=== PATIENT | male | born 1965 | race Caucasian/White ===

== ENCOUNTER 2016-07-20 16:42 | Emergency (ER) | payer OTHER ==
[2016-07-20 17:10] VITALS: RESP 18
--- NOTE | 2016-07-20 17:57 | ED ---
General Adult HPI - General Chief complaint: Abdominal Pain Stated complaint: Hemorrhoid Time Seen by Provider: 07/20/16 17:45 Source: patient, family, RN notes reviewed Mode of arrival: ambulatory Limitations: no limitations - History of Present Illness Initial comments: Patient is a pleasant 51-year-old male presenting to the emergency department complaining of hemorrhoid. Onset was yesterday. Patient states he may have been straining a little bit. Patient has had persistent discomfort since that time. No bleeding noticed. No chronic history of hemorrhoid. Patient was seen at the urgent care prior to arrival and advised to come to the emergency department. - Related Data Home Medications Medication Instructions Recorded Confirmed No Known Home Medications [No 08/09/15 07/20/16 Known Home Medications] Allergies Allergy/AdvReac Type Severity Reaction Status Date / Time Penicillins AdvReac Unknown Verified 07/20/16 17:48 Childhood Review of Systems ROS Statement: Those systems with pertinent positive or pertinent negative responses have been documented in the HPI. ROS Other: All systems not noted in ROS Statement are negative. Constitutional: Denies: fever Eyes: Denies: eye pain ENT: Denies: ear pain Respiratory: Denies: cough Cardiovascular: Denies: chest pain Endocrine: Denies: fatigue Gastrointestinal: Denies: abdominal pain Genitourinary: Denies: dysuria Musculoskeletal: Denies: back pain Skin: Denies: rash Neurological: Denies: weakness Past Medical History Past Medical History: No Reported History History of Any Multi-Drug Resistant Organisms: None Reported Past Surgical History: No Surgical Hx Reported Additional Past Surgical History / Comment(s): shoulder Past Psychological History: No Psychological Hx Reported Smoking Status: Current every day smoker Past Alcohol Use History: None Reported, Daily, Occasional Past Drug Use History: None Reported General Exam Limitations: no limitations General appearance: alert, in no apparent distress Head exam: Present: atraumatic Respiratory exam: Present: normal lung sounds bilaterally Cardiovascular Exam: Present: regular rate, normal rhythm GI/Abdominal exam: Present: soft. Absent: tenderness Rectal exam: Present: hemorrhoids (Thrombosed hemorrhoid at the 9 o'clock position, 3 x 1 cm. Tenderness is present.) Extremities exam: Present: normal inspection Neurological exam: Present: alert Psychiatric exam: Present: normal affect, normal mood Skin exam: Absent: rash Course Vital Signs 07/20/16 17:08 Temperature 98.4 F Pulse Rate 66 Respiratory 18 Rate Blood Pressure 139/71 O2 Sat by Pulse 98 Oximetry Medical Decision Making - Medical Decision Making Case was discussed with referring physician from urgent care prior to arrival. Case was discussed with Dr. Gage who will come evaluate the patient and plans on observing for thrombectomy tomorrow. Disposition Clinical Impression: Thrombosed hemorrhoids Disposition: ADMITTED IP TO THIS HOSP Referrals: Peterson Weeks DO [Primary Care Provider] - 1-2 days
[2016-07-20] MEDS ORDERED: MORPHINE SULFATE 4 MG/ML SYRINGE IV STA (18:27)
[2016-07-20] MEDS ORDERED: SODIUM CHLORIDE 0.9% 1,000 ML IV STA (18:27)
[2016-07-20] MEDS ORDERED: MORPHINE SULFATE 4 MG/ML SYRINGE IV PRN (18:29)
[2016-07-20] MEDS ORDERED: NALOXONE 0.4 MG/ML 1 ML VIAL IV PRN (18:29)
[2016-07-20 18:44] LABS: Basophils # (A) 0.1 k/uL (0-0.2); Basophils % (A) 1 %; CH 32.1; Eosinophils # (A) 0.2 k/uL (0-0.7); Eosinophils % (A) 3 %; HCT 47.6 % (39.0-53.0); HDW 2.29; HGB 16.1 gm/dL (13.0-17.5); Luc # (Auto) 0.19; Luc % (Auto) 2; Lymphocytes # (A) 3.5 k/uL (1.0-4.8); Lymphocytes % (A) 41 %; MCH 31.1 pg (25.0-35.0); MCHC 33.8 g/dL (31.0-37.0); MCV 92.2 fL (80.0-100.0); Monocytes # (A) 0.6 k/uL (0-1.0); Monocytes % (A) 6 %; Neutrophils # (A) 4.1 k/uL (1.3-7.7); Neutrophils % (A) 47 %; RBC 5.16 m/uL (4.30-5.90); RDW 12.7 % (11.5-15.5); WBC 8.7 k/uL (3.8-10.6); WBC (Perox) 8.44
[2016-07-20 18:55] LABS: Partial Thromboplastin Time 23.7 sec (22.0-30.0); Prothrombin Time 10.5 sec (9.0-12.0)
[2016-07-20 18:58] LABS: ALT 33 U/L (21-72); AST 25 U/L (17-59); Alkaline Phosphatase 83 U/L (38-126); Anion Gap 13 mmol/L; Blood Urea Nitrogen 9 mg/dL (9-20); Calcium 9.5 mg/dL (8.4-10.2); Carbon Dioxide 24 mmol/L (22-30); Chloride 104 mmol/L (98-107); Glucose 93 mg/dL (74-99); Non-African American GFR(MDRD) >60 (>60 ml/min/1.73 sqM); Sodium 141 mmol/L (137-145); Total Bilirubin 0.9 mg/dL (0.2-1.3)
--- NOTE | 2016-07-20 20:07 | ED ---
Medical Decision Making - Medical Decision Making Patient was seen by Dr. Gage and will follow-up in the morning for outpatient procedure. - Lab Data Result diagrams: 07/20/16 18:30 07/20/16 18:30 Lab Results 07/20/16 07/20/16 07/20/16 Range/Units 18:30 18:30 18:30 WBC 8.7 (3.8-10.6) k/uL RBC 5.16 (4.30-5.90) m/uL Hgb 16.1 (13.0-17.5) gm/dL Hct 47.6 (39.0-53.0) % MCV 92.2 (80.0-100.0) fL MCH 31.1 (25.0-35.0) pg MCHC 33.8 (31.0-37.0) g/dL RDW 12.7 (11.5-15.5) % Plt Count 195 (150-450) k/uL Neutrophils % 47 % Lymphocytes % 41 % Monocytes % 6 % Eosinophils % 3 % Basophils % 1 % Neutrophils # 4.1 (1.3-7.7) k/uL Lymphocytes # 3.5 (1.0-4.8) k/uL Monocytes # 0.6 (0-1.0) k/uL Eosinophils # 0.2 (0-0.7) k/uL Basophils # 0.1 (0-0.2) k/uL PT 10.5 (9.0-12.0) sec INR 1.0 (<1.1) APTT 23.7 (22.0-30.0) sec Sodium 141 (137-145) mmol/L Potassium 4.0 (3.5-5.1) mmol/L Chloride 104 (98-107) mmol/L Carbon Dioxide 24 (22-30) mmol/L Anion Gap 13 mmol/L BUN 9 (9-20) mg/dL Creatinine 0.88 (0.66-1.25) mg/dL Est GFR (MDRD) Af Amer >60 (>60 ml/min/1.73 sqM) Est GFR (MDRD) Non-Af >60 (>60 ml/min/1.73 sqM) Glucose 93 (74-99) mg/dL Calcium 9.5 (8.4-10.2) mg/dL Total Bilirubin 0.9 (0.2-1.3) mg/dL AST 25 (17-59) U/L ALT 33 (21-72) U/L Alkaline Phosphatase 83 (38-126) U/L Total Protein 8.0 (6.3-8.2) g/dL Albumin 4.5 (3.5-5.0) g/dL Disposition Clinical Impression: Thrombosed hemorrhoids Disposition: HOME SELF-CARE Condition: Stable Instructions: Hemorrhoids (ED) Additional Instructions: Please follow-up tomorrow with Dr. Parekh/Lefty as planned. Return for uncontrolled pain, redness, bleeding, worsening symptoms or other concerns. Nothing to eat after midnight. Referrals: Peterson Weeks DO [Primary Care Provider] - 1-2 days Noemi Gage MD [Emergency Provider] - 1-2 days
--- NOTE | 2016-07-20 20:17 | P.GSCN ---
History of Present Illness Consult date: 07/20/16 Reason for Consult: Thrombosed hemorrhoids History of present illness: Patient is a 51-year-old white male who states that approximately 2 days ago he noticed some perirectal swelling. He stated that this occurred after he had been using an Michelle progress and pushing down hard on it. The patient was seen in urgent care and told he had a thrombosed hemorrhoid in to be evaluated in the emergency room. The patient denies any fever or chills. The patient has no diarrhea or constipation. The patient has had some mild nausea. The patient has had a colonoscopy in the past and does not relate any problems related to this. Past surgical history: 1. Right shoulder surgery 2. Left finger surgery Past medical history: Negative Medications: Negative ALLERGIES: Penicillin as a child patient had hives Review of systems: HEENT negative Lungs: Negative Heart: Negative GI: As in history of present illness : Negative Social history: Smoking: Less than 1 pack per day for 3 years Alcohol: Week and stool Marijuana: Negative Review of Systems - Constitutional Reports as per HPI - Cardiovascular Reports as per HPI - Respiratory Reports as per HPI - Gastrointestinal Reports as per HPI - Genitourinary Reports as per HPI Past Medical History Past Medical History: No Reported History History of Any Multi-Drug Resistant Organisms: None Reported Past Surgical History: No Surgical Hx Reported Additional Past Surgical History / Comment(s): shoulder Past Psychological History: No Psychological Hx Reported Smoking Status: Current every day smoker Past Alcohol Use History: None Reported, Daily, Occasional Past Drug Use History: None Reported Medications and Allergies Home Medications Medication Instructions Recorded Confirmed Type No Known Home Medications [No 08/09/15 07/20/16 History Known Home Medications] Allergies Allergy/AdvReac Type Severity Reaction Status Date / Time Penicillins AdvReac Unknown Verified 07/20/16 17:48 Childhood Surgical - Exam Vital Signs Temp Pulse Resp BP Pulse Ox 98.4 F 66 18 139/71 98 07/20/16 17:08 07/20/16 17:08 07/20/16 17:08 07/20/16 17:08 07/20/16 17:08 - General well developed, well nourished, no distress - Eyes normal ocular movement - ENT normal pinna, normal nares, no hearing loss - Neck no masses, trachea midline, no lymphadectomy, no venous distension - Respiratory normal expansion, normal respiratory effort, clear to auscultation - Cardiovascular Rhythm: regular - Abdomen Abdomen: soft, bowel sounds - Rectum Patient has a left lateral thrombosed hemorrhoid present, this is approximately 3 cm in size Results - Labs 07/20/16 18:30 07/20/16 18:30 Diabetes panel 07/20/16 Range/Units 18:30 Sodium 141 (137-145) mmol/L Potassium 4.0 (3.5-5.1) mmol/L Chloride 104 (98-107) mmol/L Carbon Dioxide 24 (22-30) mmol/L BUN 9 (9-20) mg/dL Creatinine 0.88 (0.66-1.25) mg/dL Glucose 93 (74-99) mg/dL Calcium 9.5 (8.4-10.2) mg/dL AST 25 (17-59) U/L ALT 33 (21-72) U/L Alkaline Phosphatase 83 (38-126) U/L Total Protein 8.0 (6.3-8.2) g/dL Albumin 4.5 (3.5-5.0) g/dL Calcium panel 07/20/16 Range/Units 18:30 Calcium 9.5 (8.4-10.2) mg/dL Albumin 4.5 (3.5-5.0) g/dL Pituitary panel 07/20/16 Range/Units 18:30 Sodium 141 (137-145) mmol/L Potassium 4.0 (3.5-5.1) mmol/L Chloride 104 (98-107) mmol/L Carbon Dioxide 24 (22-30) mmol/L BUN 9 (9-20) mg/dL Creatinine 0.88 (0.66-1.25) mg/dL Glucose 93 (74-99) mg/dL Calcium 9.5 (8.4-10.2) mg/dL Adrenal panel 07/20/16 Range/Units 18:30 Sodium 141 (137-145) mmol/L Potassium 4.0 (3.5-5.1) mmol/L Chloride 104 (98-107) mmol/L Carbon Dioxide 24 (22-30) mmol/L BUN 9 (9-20) mg/dL Creatinine 0.88 (0.66-1.25) mg/dL Glucose 93 (74-99) mg/dL Calcium 9.5 (8.4-10.2) mg/dL Total Bilirubin 0.9 (0.2-1.3) mg/dL AST 25 (17-59) U/L ALT 33 (21-72) U/L Alkaline Phosphatase 83 (38-126) U/L Total Protein 8.0 (6.3-8.2) g/dL Albumin 4.5 (3.5-5.0) g/dL Assessment and Plan Plan: Impression/plan: 1. Thrombosed hemorrhoid 2. Surgical thrombectomy Plan: 1. The patient will remain nothing by mouth after midnight 2. Surgical thrombectomy tomorrow 3. If patient feels worse he will return to the emergency room
[2016-07-20 20:43] VITALS: BP 113/78; PULSE 52; TEMP 97.7
== END 2016-07-20 20:40 | disposition home or self-care (01) ==
LOC: EC 16:42 → UNDOADMOB 18:29 → 3SUR 18:29 → EC 20:40
DX: K64.9 Unspecified hemorrhoids (principal); Z88.0 Allergy status to penicillin; F17.200 Nicotine dependence, unspecified, uncomplicated
CPT/HCPCS: 36415; 80053; 85025; 85610; 85730; 99284

== ENCOUNTER 2018-03-06 09:34 | Emergency (ER) | payer OTHER ==
[2018-03-06 09:39] VITALS: RESP 18
[2018-03-06] MEDS ORDERED: PROPARACAINE 0.5% OPHTH DROPS 15 ML BTL BOTH EYES STA (09:43)
[2018-03-06] MEDS ORDERED: ERYTHROMYCIN 5 MG/GM OPHTH OINT 3.5 GM TUBE BOTH EYES STA (10:29)
--- NOTE | 2018-03-06 10:31 | ED ---
Eye Problem HPI - General Chief complaint: Eye Problems Stated complaint: Glass in EYE [facility] Time Seen by Provider: 03/06/18 10:01 Source: patient, RN notes reviewed, old records reviewed Mode of arrival: ambulatory Limitations: no limitations - History of Present Illness Initial comments: is a 52-year-old male present emergency department chief complaint of a piece of brass flying within the right eye. 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 Patient reports that he has no significant pain in the eye. He came right here to have the piece of metal removed from the eye. Patient states that he has had no watering of the eye. He denies any visual changes. He states that he does not wear glasses or contacts. - Related Data Previous Rx's Medication Instructions Recorded Erythromycin Ophth Oint [Romycin 1 applic RIGHT EYE QID #1 tube 03/06/18 Ophth Oint] Allergies Allergy/AdvReac Type Severity Reaction Status Date / Time Penicillins AdvReac Anaphylaxis Verified 03/06/18 10:07 Review of Systems ROS Statement: Those systems with pertinent positive or pertinent negative responses have been documented in the HPI. ROS Other: All systems not noted in ROS Statement are negative. Past Medical History Past Medical History: No Reported History History of Any Multi-Drug Resistant Organisms: None Reported Past Surgical History: No Surgical Hx Reported Additional Past Surgical History / Comment(s): shoulder Past Psychological History: No Psychological Hx Reported Smoking Status: Current every day smoker Past Alcohol Use History: Occasional Past Drug Use History: None Reported General Exam - General Exam Comments Initial Comments: Well-appearing 52-year-old male. Alert and oriented. No acute distress. Limitations: no limitations General appearance: alert, in no apparent distress Head exam: Present: atraumatic, normocephalic, normal inspection Eye exam: Absent: normal appearance (Patient had a small piece of metal on the right upper eyelash line. No evidence of retained foreign metal body within the actual conjunctiva.) ENT exam: Present: normal exam Neck exam: Present: normal inspection. Absent: tenderness, meningismus, lymphadenopathy Respiratory exam: Present: normal lung sounds bilaterally. Absent: respiratory distress, wheezes, rales, rhonchi, stridor Cardiovascular Exam: Present: regular rate, normal heart sounds. Absent: systolic murmur, diastolic murmur, rubs, gallop, clicks Extremities exam: Present: normal inspection, full ROM, normal capillary refill. Absent: tenderness, pedal edema, joint swelling, calf tenderness Neurological exam: Present: alert, oriented X3, CN II-XII intact Psychiatric exam: Present: normal affect, normal mood Skin exam: Present: warm, dry, intact, normal color. Absent: rash Course Vital Signs 03/06/18 09:35 Temperature 97.9 F Pulse Rate 55 L Respiratory 18 Rate Blood Pressure 116/68 O2 Sat by Pulse 100 Oximetry Medical Decision Making - Medical Decision Making Patient's 52-year-old male since restricted she complained of metal foreign body within the right eye. 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 At this time Patient has the piece of foreign body with on the actual eyelid. I removed this with a moistened swab. I did stain the eye will for seen and examined the eye under the Luna lamp. There is a small evidence of a corneal abrasion over the lateral aspect of the conjunctiva and canthus. Patient at this time. Erythromycin eye ointment. Given referral for oncologic symptoms persist. I discussed putting him in and every 4 hours the next few days. Patient understands treatment plan will comply. Return parameters were discussed. Disposition Clinical Impression: Corneal abrasion, Foreign body in eyeball, right Disposition: HOME SELF-CARE Condition: Good Additional Instructions: Apply the eye ointment every 4 hours for the next 3 days. Patient should follow -up with ophthalmology if symptoms persist. Return to emergency department if any alarming signs or symptoms occur. Prescriptions: Erythromycin Ophth Oint [Romycin Ophth Oint] 1 applic RIGHT EYE QID #1 tube Is patient prescribed a controlled substance at d/c from ED?: No Referrals: Andreas Mejía MD [Primary Care Provider] - 1-2 days Time of Disposition: 10:30
[2018-03-06 11:04] VITALS: BP 114/59; PULSE 64; TEMP 98.2
== END 2018-03-06 10:59 | disposition home or self-care (01) ==
LOC: EC 09:34
DX: T15.01XA Foreign body in cornea, right eye, initial encounter (principal); Z88.0 Allergy status to penicillin; Y92.69 Other specified industrial and construction area as the place of occurrence of the external cause; Y99.0 Civilian activity done for income or pay
CPT/HCPCS: 99283

== ENCOUNTER → 2019-05-28 | Outpatient (CLI) | payer OTHER ==
--- NOTE | 2019-05-28 14:50 | XR ---
EXAMINATION TYPE: XR orbit detect foreign body DATE OF EXAM: 05/28/2019 COMPARISON: NONE HISTORY: Pre-MRI clearance TECHNIQUE: 3 views of the orbits are submitted. FINDINGS: No radiopaque foreign bodies identified. Paranasal sinuses and osseous structures of the fa cial bones are grossly unremarkable. IMPRESSION: The patient is cleared for MRI.
== END | disposition home or self-care (01) ==
LOC: RADXRMAIN 14:24
PROVIDERS: ATTEND Radiology Radiation Oncology
DX: C61 Malignant neoplasm of prostate (principal); F17.210 Nicotine dependence, cigarettes, uncomplicated
CPT/HCPCS: 70030

== ENCOUNTER → 2019-05-29 | Outpatient (CLI) | payer OTHER ==
--- NOTE | 2019-06-04 13:35 | MR ---
EXAMINATION TYPE: MR Prostate wo/w con DATE OF EXAM: 05/29/2019 COMPARISON: None. IMAGE QUALITY: Good. INDICATION: Malignant neoplasm of prostate PSA: 4.7 ng/ml on March 02 Recent Biopsy and Date: April 11, 2019 Pathology Report (If Applicable): [place] score 3+4 = 7 right base TECHNIQUE: Examination was performed using a 3T MRI without an endorectal coil. Multiparametric imaging was perf ormed with T2 mutliplanar sequences, axial diffusion weighted imaging and dynamic contrast enhanced i maging, utilizing 7.5 mL intravenous Gadavist gadolinium contrast. FINDINGS: There is no clinically significant cancer identified. PROSTATE VOLUME: 3.8 cm SI x 4.1 cm AP x 4.8 cm LR Vol= 39.2 cc PSA DENSITY: 4.6944 ng/ml/cc Peripheral zone shows areas of indistinct hypointensity on ADC mapping. No areas of [id number]-sw-yluybtew hypointensity or increased signal on diffusion-weighted imaging. Transitional zone shows fairly oswald l appearance without areas of suspicious hypointensity and T2 weighted images. T1 axial images show s ome areas of postbiopsy hemorrhage left central mid zone axial image 19 for reference. Prostate capsule maintained. Seminal vesicles are within normal limits. No adjacent adenopathy. There is poor bladder distention with mild wall thickening and trabeculation up to 9 mm. Visualized osseous structures are intact. Visualized bowel shows no suspicious dilatation. No concern ing pelvic fluid collection is seen. IMPRESSION: Mildly enlarged prostate gland without definitive concerning lesion. A focus of clinically significant cancer is not identified. Highest Assessment Category: 2 MRI Stage: T1c N0 M0 based on review of pelvic images. False negative rates for MRI range from 5-20% depending on risk profile. Assessment Categories: 1 ? Very low (clinically significant cancer is highly unlikely to be present) 2 ? Low (clinically significant cancer is unlikely to be present) 3 ? Intermediate (the presence of clinically significant cancer is equivocal) 4 ? High (clinically significant cancer is likely to be present) 5 ? Very high (clinically significant cancer is highly likely to be present) Locations: PZ = peripheral zone; TZ = transition zone CZ=central zone; AFS = anterior fibromuscular stroma a=anterior half (i.e. PZa=anterior half of peripheral zone); pm= posterior medial (i.e PZpm) pl = postero-lateral (i.e. PZpl); p = posterior half (i.e. TZp) ; a = anterior half (i.e TZa or P Za) Other: N=no or no; E= equivocal; Y=yes EPE = extraprostatic extension NVB = neurovascular bundle NA = not applicable/not available
== END | disposition home or self-care (01) ==
LOC: RADMRIMAIN 05:52
PROVIDERS: ATTEND Radiology Radiation Oncology
DX: C61 Malignant neoplasm of prostate (principal)
CPT/HCPCS: 72197; A9585

== ENCOUNTER → 2019-06-04 | Outpatient (CLI) | payer OTHER | END | disposition home or self-care (01) | LOC: LABWHC1 15:02 | PROVIDERS: ATTEND Radiology Radiation Oncology | DX: C61 Malignant neoplasm of prostate (principal); F17.210 Nicotine dependence, cigarettes, uncomplicated | CPT/HCPCS: 36415; 84153 ==

== ENCOUNTER → 2019-06-14 | Outpatient (CLI) | payer OTHER ==
[2019-06-14 16:45] LABS: Basophils # (A) 0.1 k/uL (0-0.2); Basophils % (A) 1 %; Eosinophils # (A) 0.3 k/uL (0-0.7); Eosinophils % (A) 3 %; HCT 45.7 % (39.0-53.0); Lymphocytes # (A) 3.3 k/uL (1.0-4.8); Lymphocytes % (A) 37 %; MCH 31.4 pg (25.0-35.0); MCHC 32.9 g/dL (31.0-37.0); MCV 95.5 fL (80.0-100.0); Mean Platelet Volume 7.6; Monocytes # (A) 0.4 k/uL (0-1.0); Monocytes % (A) 5 %; Neutrophils # (A) 4.8 k/uL (1.3-7.7); Neutrophils % (A) 53 %; Platelet Count 252 k/uL (150-450); RBC 4.79 m/uL (4.30-5.90); RDW 12.8 % (11.5-15.5); WBC 9.1 k/uL (3.8-10.6)
[2019-06-14 16:54] LABS: African American GFR (CKD) >90 (>60 ml/min/1.73 sqM); Anion Gap 6 mmol/L; Blood Urea Nitrogen 17 mg/dL (9-20); Calcium 9.2 mg/dL (8.4-10.2); Carbon Dioxide 28 mmol/L (22-30); Chloride 105 mmol/L (98-107); Glucose 84 mg/dL (74-99); Non-African American GFR(CKD) 89 (>60 ml/min/1.73 sqM); Potassium 4.5 mmol/L (3.5-5.1); Sodium 139 mmol/L (137-145)
== END | disposition home or self-care (01) ==
LOC: LABPAT 15:12
PROVIDERS: ATTEND Urology
DX: Z01.812 Encounter for preprocedural laboratory examination (principal); C61 Malignant neoplasm of prostate
CPT/HCPCS: 36415; 80048; 85025

== ENCOUNTER 2019-06-20 14:28 | Day surgery (SDC) | payer OTHER ==
[2019-06-19 09:55] VITALS: BMI 25.1
[~2019-06-20 14:28] MED LIST: CIPROFLOXACIN/DEXTROSE PMX 400 MG in DEXTROSE/WATER 1 200ML.BAG IVPB ONE; LACTATED RINGERS 1,000 ML IV SCH; LIDOCAINE 1% 20 ML VIAL (10MG/ML) FOR IV START INTRADERMA PRN; ONDANSETRON 4 MG/2 ML VIAL IVP ONE
[2019-06-20] MEDS ORDERED: DEXAMETHASONE SOD PHOSPHATE 10 MG/ML 1 ML VIAL IV ONE (14:51)
[2019-06-20] MEDS ORDERED: MIDAZOLAM 2 MG/2 ML VIAL ONE (15:03)
[2019-06-20] MEDS ORDERED: fentaNYL (PF) 50 MCG/ML 2 ML AMP ONE (15:03)
[2019-06-20] MEDS ORDERED: SUCCINYLCHOLINE CHLORIDE 100 MG/5 ML SYR IV ONE (15:03)
[2019-06-20] MEDS ORDERED: LIDOCAINE 1% INJ 10MG/ML (20 ML MDV) ONE (15:03)
[2019-06-20] MEDS ORDERED: PROPOFOL 10 MG/ML 20 ML VIAL IV ONE (15:03)
[2019-06-20] MEDS ORDERED: LIDOCAINE 2% INJ 20 MG/ML SQ ONE ×2 (15:27)
--- NOTE | 2019-06-20 16:14 | P.OP ---
Date of Procedure: 06/20/19 Preoperative Diagnosis: Prostate Cancer Postoperative Diagnosis: Same Procedure(s) Performed: Transperineal Ultrasound, SpaceOR placement and Fiduicial marker placement Implants: SpaceOR and 3 Fiducial markers Anesthesia: AYDIN Surgeon: Perico Simental Estimated Blood Loss (ml): 5 Pathology: none sent Condition: stable Disposition: PACU Indications for Procedure: Mr. South is 53 yo male with hx of prostate cancer. He elected to proceed with radiation therapy. He elected to proceed with SpaceOR placement and Fiducial marker placement. I discussed with risk of bleeding and infection. Also discussed risk of rectal and prostate injury. I discussed with him the risk from anesthesia which includes but not limited to heart attack, stroke, blood clots and even loss of life. He understood all the risk and agreed to proceed Description of Procedure: The patient was taken to the operating room and placed in the dorsolithotomy position, with his legs supported in Moise stirrups. The external genitalia was prepped and draped sterilely. The BK transrectal ultrasound probe was placed intrarectally. The prostate was imaged. The probe was then placed within the stabilizing stand. A spinal needle was advanced under ultrasonic guidance to the level of the urogenital diaphragm, and lidocaine was used to infiltrate the tissues as the needle was withdrawn. The fiducial marker were then implanted. marker were placed at left mid,left anterior apex and right mid. Next, the SpaceOAR needle was passed through the midline of the perineum, 1-2 cm anterior to the anal opening. The needle was slowly advanced under ultrasonic guidance until the needle tip was located within the fat plane between the prostate and rectum, at the level of the mid prostate gland. The needle was confirmed to be midline on the axial imaging. A small amount of normal saline was injected for hydrodissection. Next, the SpaceOAR components were mixed and loaded into the Y connector per protocol. The Y connector was then connected to the needle, and the components were injected slowly over a course of approximately 12 seconds. A total of 10 ml was injected. Significant distance was created between the prostate and rectum, as desired. It should be noted that at no point was there any concern of rectal perforation. The needle was withdrawn, as well as the transrectal ultrasound probe, and the procedure was terminated. The patient tolerated the procedure well and was taken to the recovery room in stable condition.
[2019-06-20 16:33] VITALS: TEMP 97.8
[2019-06-20] MEDS: HYDROmorphone 0.5 MG/0.5 ML SYRINGE IVP PRN ×2 (16:37→16:42)
[2019-06-20] MEDS ORDERED: LACTATED RINGERS 1,000 ML IV ONE (16:39)
[2019-06-20 17:21] VITALS: RESP 16
[2019-06-20 17:40] VITALS: BP 134/80; PULSE 54
== END 2019-06-20 18:07 | disposition home or self-care (01) ==
LOC: OR 14:28
PROVIDERS: ATTEND Urology
DX: C61 Malignant neoplasm of prostate (principal); K08.89 Other specified disorders of teeth and supporting structures; I83.90 Asymptomatic varicose veins of unspecified lower extremity; F17.210 Nicotine dependence, cigarettes, uncomplicated; Z88.0 Allergy status to penicillin; Z79.899 Other long term (current) drug therapy; Z98.890 Other specified postprocedural states; Z86.718 Personal history of other venous thrombosis and embolism; Z87.81 Personal history of (healed) traumatic fracture; Z90.49 Acquired absence of other specified parts of digestive tract
CPT/HCPCS: 55876; 55874; J2001 ×2; J2250; J1100; J2405; J3010; J0744; J0330; J2704; J1170

== ENCOUNTER → 2019-10-12 | Outpatient (CLI) | payer OTHER | END | disposition home or self-care (01) | LOC: LABWHC1 09:09 | PROVIDERS: ATTEND Radiology Radiation Oncology | DX: Z00.6 Encounter for examination for normal comparison and control in clinical research program (principal); C61 Malignant neoplasm of prostate; F17.210 Nicotine dependence, cigarettes, uncomplicated | CPT/HCPCS: 36415; 84153 ==

== ENCOUNTER → 2020-01-24 | Outpatient (CLI) | payer OTHER | END | disposition home or self-care (01) | LOC: LABWHC1 11:19 | PROVIDERS: ATTEND Family Medicine | DX: R51 Headache (principal); R50.9 Fever, unspecified; R68.83 Chills (without fever) | CPT/HCPCS: U0003; C9803 ==

== ENCOUNTER → 2020-02-15 | Outpatient (CLI) | payer OTHER | END | disposition home or self-care (01) | LOC: LABWHC1 12:59 | PROVIDERS: ATTEND Radiology Radiation Oncology | DX: Z00.6 Encounter for examination for normal comparison and control in clinical research program (principal); C61 Malignant neoplasm of prostate; F17.210 Nicotine dependence, cigarettes, uncomplicated | CPT/HCPCS: 36415; 84153 ==

== ENCOUNTER → 2020-07-30 | Outpatient (CLI) | payer OTHER ==
[2020-07-30 12:44] LABS: Appearance,Urine Clear (Clear); Bilirubin,Urine Negative (Negative); Blood,Urine Negative (Negative); Color,Urine Light Yellow; Glucose,Urine (UA) Negative (Negative); Ketones,Urine Negative (Negative); Leukocyte Esterase,Urine Negative (Negative); Nitrite,Urine Negative (Negative); PH, Urine 6.5 (5.0-8.0); Protein,Urine Negative (Negative); Specific Gravity,Urine 1.007 (1.001-1.035); Urobilinogen,Urine <2.0 mg/dL (<2.0)
== END | disposition home or self-care (01) ==
LOC: LABWHC1 11:43
PROVIDERS: ATTEND Radiology Radiation Oncology
DX: Z00.6 Encounter for examination for normal comparison and control in clinical research program (principal); C61 Malignant neoplasm of prostate; F17.210 Nicotine dependence, cigarettes, uncomplicated; Z92.3 Personal history of irradiation
CPT/HCPCS: 36415; 81003; 84153; 87086

== ENCOUNTER → 2021-01-28 | Outpatient (CLI) | payer OTHER | END | disposition home or self-care (01) | LOC: LABWHC1 15:47 | PROVIDERS: ATTEND Radiology Radiation Oncology | DX: C61 Malignant neoplasm of prostate (principal); Z92.3 Personal history of irradiation; Z00.6 Encounter for examination for normal comparison and control in clinical research program; F17.210 Nicotine dependence, cigarettes, uncomplicated | CPT/HCPCS: 36415; 84153 ==

== ENCOUNTER → 2021-06-22 | Outpatient (CLI) | payer OTHER | END | disposition home or self-care (01) | LOC: LABWHC1 11:43 | PROVIDERS: ATTEND Radiology Radiation Oncology | DX: C61 Malignant neoplasm of prostate (principal); Z92.3 Personal history of irradiation; F17.210 Nicotine dependence, cigarettes, uncomplicated | CPT/HCPCS: 36415; 84153 ==

== ENCOUNTER → 2022-04-06 | Outpatient (CLI) | payer BC | END | disposition home or self-care (01) | LOC: LABWHC1 11:14 | PROVIDERS: ATTEND Radiology Radiation Oncology | DX: C61 Malignant neoplasm of prostate (principal); R35.1 Nocturia; Z92.3 Personal history of irradiation; Z00.6 Encounter for examination for normal comparison and control in clinical research program; F17.210 Nicotine dependence, cigarettes, uncomplicated | CPT/HCPCS: 36415; 84153 ==

== ENCOUNTER → 2022-10-14 | Outpatient (CLI) | payer BC | END | disposition home or self-care (01) | LOC: LABWHC1 10:02 | PROVIDERS: ATTEND Radiology Radiation Oncology | DX: Z08 Encounter for follow-up examination after completed treatment for malignant neoplasm (principal); Z00.6 Encounter for examination for normal comparison and control in clinical research program; C61 Malignant neoplasm of prostate; F17.210 Nicotine dependence, cigarettes, uncomplicated; Z85.46 Personal history of malignant neoplasm of prostate; R35.1 Nocturia; Z92.3 Personal history of irradiation | CPT/HCPCS: 36415; 84153 ==

== ENCOUNTER → 2023-05-02 | Outpatient (CLI) | payer BC | END | disposition home or self-care (01) | LOC: LABWHC1 10:16 | PROVIDERS: ATTEND Radiology Radiation Oncology | DX: Z08 Encounter for follow-up examination after completed treatment for malignant neoplasm (principal); Z00.6 Encounter for examination for normal comparison and control in clinical research program; C61 Malignant neoplasm of prostate; F17.210 Nicotine dependence, cigarettes, uncomplicated; R35.1 Nocturia; Z92.3 Personal history of irradiation | CPT/HCPCS: 36415; 84153 ==

== ENCOUNTER → 2024-02-22 | Outpatient (CLI) | payer OTHER | END | disposition home or self-care (01) | LOC: LABWHC1 09:16 | PROVIDERS: ATTEND Radiology Radiation Oncology | DX: C61 Malignant neoplasm of prostate | CPT/HCPCS: 36415; 84153 ==